=== PATIENT | male | born 1985 | race Caucasian/White ===

== ENCOUNTER 2018-04-08 21:02 | Emergency (ER) | payer BC ==
[2018-04-08 21:14] VITALS: BP 142/80
[2018-04-08] MEDS ORDERED: Neomyc/Polym/HC 1% OTIC SUSP* **OTIC LEFT EAR ONE (21:26)
--- NOTE | 2018-04-08 21:30 | UC ---
Ear Complaint HPI - HPI Summary HPI Summary: C/O decreased hearing with both ears and some pain in the left ear. Mild URI symptoms with congestion and cough. H/O allergies and asthma as a child. - History of Current Complaint Chief Complaint: UCEar Stated Complaint: BILATERAL EAR CONCERN Time Seen by Provider: 04/08/18 21:15 Hx Obtained From: Patient Onset/Duration: Gradual Onset, Lasting Weeks - 1, Still Present Severity Initially: Mild Severity Currently: Moderate Pain Intensity: 7 Aggravating Factors: Nothing Associated Signs/Symptoms: Positive: Hearing Loss Related History: Seasonal Allergies - Allergies/Home Medications Allergies/Adverse Reactions: Allergies Allergy/AdvReac Type Severity Reaction Status Date / Time No Known Allergies Allergy Verified 03/18/16 15:03 PMH/Surg Hx/FS Hx/Imm Hx Respiratory History: Asthma - Surgical History Surgical History: None - Family History Known Family History: Positive: Diabetes, Respiratory Disease - Social History Occupation: Employed Full-time Lives: With Family Alcohol Use: Occasionally Substance Use Type: None Smoking Status (MU): Never Smoked Tobacco Review of Systems All Other Systems Reviewed And Are Negative: Yes ENT: Positive: Ear Ache, Nasal Discharge Respiratory: Positive: Cough Is Patient Immunocompromised?: No Physical Exam Triage Information Reviewed: Yes Appearance: Well-Appearing, No Pain Distress, Well-Nourished Vital Signs: Initial Vital Signs Temp 97.6 F 04/08/18 21:11 Pulse 79 04/08/18 21:11 Resp 18 04/08/18 21:11 BP 142/80 04/08/18 21:11 Pulse Ox 99 04/08/18 21:11 Vital Signs Reviewed: Yes Eyes: Positive: Conjunctiva Clear ENT: Positive: Pharynx normal, Nasal congestion, TMs normal - but retracted, Other - left ear canal red and swollen Neck exam: Normal Respiratory Exam: Normal Cardiovascular Exam: Normal Musculoskeletal Exam: Normal Neurological Exam: Normal Psychological Exam: Normal Skin Exam: Normal Ear Complaint Course/Dx - Differential Dx/Diagnosis Differential Diagnosis/HQI/PQRI: Cerumen Impaction, Otitis Externa, Otitis Media , URI Provider Diagnosis: Otitis externa, Eustachian tube dysfunction Discharge - Sign-Out/Discharge Documenting (check all that apply): Patient Departure All imaging exams completed and their final reports reviewed: No Studies - Discharge Plan Condition: Stable Disposition: HOME Patient Education Materials: Otitis Externa (ED) Referrals: Matt Goode MD [Primary Care Provider] - Additional Instructions: EUSTATION TUBE DYSFUNCTION: The tube that allows the middle ear to equalize the pressure with the outside air is blocked. This can be due to colds, allergies, smoke, or other irritants. Short term treatment can include Afrin, sudafed and nasal cortisone sprays for allergies. NASAL SPRAYS AND DROPS: Afrin in the PUMP/ MIST bottle (Get generic 12 hours nasal decongestant spray). Tilt your head down and look at the floor while doing a strong sniff with the spray. Decongestant nasal sprays and drops often give dramatic relief from congestion. They are often recommended for patients with sinus infection to assist with sinus drainage. Persons with high blood pressure should consult the doctor before using these nasal sprays. Afrin and Jon-Synephrine are common [id number] preparations. They should not be used for more than five days, as "rebound" congestion can occur - - the congestion flares as the drug wears off. A way of dealing with this rebound congestion problem is to medicate only one nostril each time, allowing the other nostril to recover from the medicine' s effects. When you no longer need the drug during the day, spray only one nostril each night. This helps you sleep well without severe rebound congestion. Call the doctor if you develop severe headache, palpitations, or chest pain. - Billing Disposition and Condition Condition: STABLE Disposition: Home
== END 2018-04-08 21:38 | disposition home or self-care (01) ==
LOC: UCCORT 21:02
DX: H60.92 Unspecified otitis externa, left ear (principal); H69.80 Other specified disorders of Eustachian tube, unspecified ear
CPT/HCPCS: 99212; A9270-GY; G0463